=== PATIENT | male | born 1940 | race Caucasian/White ===

== ENCOUNTER 2017-11-14 14:58 | Emergency (ER) | payer MEDICARE, OTHER ==
[~2017-11-14] VITALS: Ht 188 cm; Wt 106.1 kg
[~2017-11-14 14:58] MED LIST: ULTRAM 50MG50 MG PO
[2017-11-14 16:30] LABS: BASOPHILS # (AUTO) 0.1 (0.0-0.1); BASOPHILS % 0.5 % (0.0-1.0); EOSINOPHILS # (AUTO) 0.3 (0.0-0.4); EOSINOPHILS % 2.7 % (0.0-6.0); HEMATOCRIT 44.4 % (38.2-49.6); HEMOGLOBIN 15.4 g/dL (14.0-18.0); LYMPHOCYTES # (AUTO) 1.9 (1.0-3.2); LYMPHOCYTES % 20.5 % (18.0-39.1); MEAN CORPUSCULAR HEMOGLOBIN 32.4 pg (28-32); MEAN CORPUSCULAR HGB CONC 34.7 g/dL (31-35); MEAN CORPUSCULAR VOLUME 93.3 fL (81-99); MONOCYTES # (AUTO) 0.6 (0.2-0.8); NEUTROPHILS # (AUTO) 6.3 (2.1-6.9); PLATELET COUNT 130 x10e3/uL (140-360); RED BLOOD COUNT 4.76 x10e6/uL (4.3-5.7); RED CELL DISTRIBUTION WIDTH 12.5 % (11.7-14.4)
[2017-11-14 16:34] LABS: BILIRUBIN,URINE NEGATIVE (NEGATIVE); CLARITY,URINE CLEAR (CLEAR); COLOR,URINE YELLOW (YELLOW); KETONES,URINE NEGATIVE (NEGATIVE); LEUKOCYTE ESTERASE ,URINE NEGATIVE (NEGATIVE); NITRITE,URINE NEGATIVE (NEGATIVE); PROTEIN,URINE DIPSTICK NEGATIVE (NEGATIVE); URINE UROBILINOGEN 0.2 mg/dL (0.2 - 1)
[2017-11-14 16:43] LABS: BACTERIA,URINE FEW /HPF; EPITHELIAL CELLS,URINE MODERATE /LPF
[2017-11-14 16:53] LABS: ALBUMIN/GLOBULIN RATIO 1.5 (0.8-2.0); ANION GAP 11.2 mmol/L (8-16); CALCIUM 10.1 mg/dL (8.4-10.2); CREATININE, SERUM 1.52 mg/dL (0.72-1.25); POTASSIUM 4.2 mmol/L (3.5-5.1)
[2017-11-14 16:59] LABS: CREATINE KINASE MB 1.7 ng/mL (0-5.0)
[2017-11-14] MEDS ORDERED: SODIUM CHLORIDE 0.9% 1000ML 1,000 ML IV SCH (18:00)
--- NOTE | 2017-11-14 19:18 | Diagnostic Imaging Report ---
PROCEDURE: CT ABDOMEN AND PELVIS WITH CONTRAST TECHNIQUE: The abdomen and pelvis were scanned utilizing a multidetector helical scanner from the diaphragm to the lesser trochanter after the IV administration of 100 cc of Isovue 370 and the oral administration of water. Coronal and sagittal multiplanar reformations were obtained. COMPARISON: None. INDICATIONS: DIFFUSED ABDOMINAL PAIN FINDINGS: LOWER THORAX: Lung bases are clear. Mild atherosclerotic calcification of the coronary arteries and thoracic aorta. HEPATOBILIARY: Normal hepatic size and contour. No focal lesions. No biliary ductal dilation. 2.1 cm calcified stone in the gallbladder lumen. No wall thickening or pericholecystic fluid. SPLEEN: No splenomegaly. PANCREAS: No focal masses or ductal dilatation. ADRENALS: No adrenal nodules. KIDNEYS/URETERS: No hydronephrosis, stones, or solid mass lesions. Mildly atrophic left kidney, which measures approximately 8.2 cm in length, and shows cortical thinning. 4 mm hypodense lesion in the interpolar right kidney (series 2 image 39), which is too small to characterize, but likely represents a small cyst. PELVIC ORGANS/BLADDER: Moderate circumferential bladder wall thickening. Prostate measures approximately 3.6 x 3.5 x 4.5 cm (estimated volume 29 cc). No focal lesions. PERITONEUM / RETROPERITONEUM: No free air or fluid. LYMPH NODES: No lymphadenopathy. VESSELS: Distal aorta/proximal iliac vessels stent graft. Atherosclerotic calcification of the abdominal aorta. GI TRACT: Stomach is unremarkable. No bowel dilation or evidence of obstruction. No pericolonic inflammatory changes. Appendix is well identified and normal in caliber. 1.4 x 1.8 x 1.2 cm fat containing intraluminal mass in the third portion of the duodenum (series 2 image 49 and sagittal image 71), consistent with a lipoma. BONES AND SOFT TISSUES: No aggressive lytic lesion. Degenerative disc changes in the lower thoracic and lumbosacral spine. Facet hypertrophy. L5-S1. Nonaggressive appearing focal sclerotic lesions in bilateral femoral heads, with the largest measuring approximately 1.2 cm (series 2, images 84 and 85), likely representing bone islands. Soft tissues are grossly unremarkable. IMPRESSION: 1. no acute abdominopelvic abnormalities. No bowel dilation or evidence of obstruction. 2. Mildly atrophic left kidney with left cortical thinning. No hydronephrosis, stones or obstruction. 3. Cholelithiasis, without CT evidence of cholecystitis. 4. Moderate circumferential bladder wall thickening. While this may be partly due to a mildly enlarged prostate, correlate with urinalysis to exclude cystitis. 5. 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 Scott Zapien M.D. Dictated by: Scott Zapien M.D. on 11/14/2017 at 19:21 Electronically approved by: Scott Zapien M.D. on 11/14/2017 at 19:21
[2017-11-14] MEDS ORDERED: SODIUM CHLORIDE 0.9% 50ML 50 ML ONE (20:40)
[2017-11-14] MEDS ORDERED: IOPAMIDOL 370 MG/ML 200 ML INFUS..BTL INJ ONE (20:40)
== END 2017-11-14 20:13 | disposition home or self-care (01) ==
LOC: ER 14:58
DX: R10.84 Generalized abdominal pain (principal); I10 Essential (primary) hypertension; I25.10 Atherosclerotic heart disease of native coronary artery without angina pectoris; I73.9 Peripheral vascular disease, unspecified; Z95.5 Presence of coronary angioplasty implant and graft
CPT/HCPCS: 36415; 74177; 80053; 81001; 82150; 82550; 82553; 83690; 84484; 85025; 99284; J7030; Q9967